=== PATIENT | female | born 1990 | race Caucasian/White ===

== ENCOUNTER 2018-02-23 23:27 | Emergency (ER) | payer OTHER ==
--- NOTE | 2018-02-23 23:31 | PDOC ---
History of Present Illness <Galen Leija - Last Filed: 02/23/18 23:48> - History of Present Illness Initial Comments: 02/24/18 00:03 This 27 year old woman with a history of hypertension and DM (diet-controlled) presents with a few day history of left flank pain. Pain radiates to the left lower quadrant and is associated with urinary urgency. No history of dysuria; patient noted blood on tissue after urination earlier today. She has just stopped menstruating however. No leg pain/paresthesias/numbness or weakness. 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 No history of renal colic in the patient but her mother has kidney stones. One previous history of bladder infection; no history of pyelonephritis. No fever/chills. Patient has been nauseous for the last few hours. No vomiting. <Quin Kramer - Last Filed: 02/24/18 05:46> - General Chief Complaint: Pain Stated Complaint: LT FLANK PAIN Past History <Galen Leija - Last Filed: 02/23/18 23:48> - Past Medical History Asthma: No Cancer: No Cardiac Disorders: No Diabetes: Yes (NO MEDS, DIET CONTROLLED) HTN: Yes Seizures: No Thyroid Disease: No - Surgical History Cardiac Surgery: Yes (MAY) Cholecystectomy: Yes - Family Disease History Family Disease History: Diabetes: Mother - Reproductive History (#): 0 Para: 1 Cervical CA: No Dysfunctional Uterine Bleeding: No Ectopic : No Endometrial CA: No Polycystic Ovaries: No Therapeutic (s) & number: No Tubal Ligation: No Spontaneous : 0 - Suicide/Smoking/Psychosocial Hx Smoking History: Never smoked Have you smoked in the past 12 months: No Hx Alcohol Use: No Drug/Substance Use Hx: No Substance Use Type: None Hx Substance Use Treatment: No <Quin Kramer - Last Filed: 02/24/18 05:46> - Past Medical History Allergies/Adverse Reactions: Allergies Allergy/AdvReac Type Severity Reaction Status Date / Time No Known Drug Allergies Allergy Verified 04/23/15 14:40 seafood Allergy Intermediate Hives Uncoded 04/23/15 14:40 Home Medications: Ambulatory Orders Ciprofloxacin [Cipro (Restricted To Id)] 500 mg PO Q12H #10 tablet 02/24/18 Review of Systems - Review of Systems Able to Perform ROS?: Yes Comments:: 12 point review of systems is negative except for what is noted in the history of present illness <Quin Kramer - Last Filed: 02/24/18 05:46> *Physical Exam - Vital Signs Last Vital Signs Temp Pulse Resp BP Pulse Ox 98.4 F 88 16 144/100 100 02/23/18 23:28 02/23/18 23:28 02/23/18 23:28 02/23/18 23:28 02/23/18 23:28 <Galen Leija - Last Filed: 02/23/18 23:48> - Physical Exam Comments: GENERAL: Adult female, in mild distress secondary to left flank pain HEAD: Normal with no signs of trauma. EYES: PERRLA, EOMI, sclera anicteric, conjunctiva clear. ENT: Ears normal, nares patent, oropharynx clear without exudates. Dry mucous membranes. NECK: Normal range of motion, supple without lymphadenopathy, JVD, or masses. LUNGS: Breath sounds equal, clear to auscultation bilaterally. No wheezes, and no crackles. HEART:Regular rate and rhythm, normal S1 and S2 without murmur, rub or gallop. ABDOMEN:.normal bowel sounds No guarding,tenderness or rebound.No masses No distention. EXTREMITIES: Normal range of motion, no edema. No clubbing or cyanosis. No erythema, or tenderness. NEUROLOGICAL: Cranial nerves II through XII grossly intact. Normal speech. No focal neurological deficits. MUSCULOSKELETAL: Back non-tender to palpation, mild left CVA tenderness SKIN: Warm, Dry, normal turgor, no rashes or lesions noted. <Quin Kramer - Last Filed: 02/24/18 05:46> ED Treatment Course - LABORATORY CBC & Chemistry Diagram: 02/24/18 00:18 02/24/18 00:18 <Quin Kramer - Last Filed: 02/24/18 05:46> Medical Decision Making - Medical Decision Making 02/24/18 00:07 Urinalysis positive for 10-20 RBCs/2-5 WBCs/2+ bacteria/few epi PGU is negative Urine C&S sent. Because of the patient's pattern of pain, microscopic hematuria and family history of kidney stones, renal stone protocol CT ordered.. Renal stone protocol CT preliminary interpretation by Imaging communications department head: No evidence of ureteral stone or hydronephrosis on left side. Possible right distal ureter calcification versus phlebolith noted with possible mild hydronephrosis. No other abnormality seen. Fatty liver is noted. Results discussed with the patient: She is now comfortable after 1 L normal saline IV and 30 mg Toradol IV. Although there is no clear indication that ureteral stone is present on the left side or that there is hydro nephrosis/ ureter, patient will be treated with Cipro 500 mg now and course of Cipro 500 milligrams twice a day for 5 days will be prescribed. Left flank pain and urinary urgency in the be early signs of upper tract UTI. Meanwhile, patient should drink plenty of water use [id number] nonsteroidal anti-inflammatory/acetaminophen as needed for pain. She should return to the emergency room if she has persistent, severe pain or experiences fever/vomiting. 02/24/18 02:56 After the patient was discharged, results for random glucose of 457 received. Patient was contacted and results of the blood glucose test reviewed with her. Patient states that she had gestational DM requiring insulin; after delivery, metformin was prescribed but she had severe gastrointestinal side effects and this was stopped. According to the patient, she has not been on any oral hypoglycemic agents. She does not routinely test blood or urine for sugar. She states that her general medical doctor is [facility] based, in the [place] ( Dr. Lino). Patient has been advised again to drink plenty of water, maintain diabetic diet and call her doctor tomorrow for urgent follow-up. She understands that she may need treatment of her diabetes now and that continuing blood glucose levels at this high value would be dangerous She should return to the ER if she experiences weakness/extreme fatigue, nausea , extreme thirst/urination. <Quin Kramer - Last Filed: 02/24/18 05:46> *DC/Admit/Observation/Transfer <Galen Leija - Last Filed: 02/23/18 23:48> <Quin Kramer - Last Filed: 02/24/18 05:46> Diagnosis at time of Disposition: Flank pain UTI (urinary tract infection) Qualifiers: Urinary tract infection type: site unspecified Hematuria presence: without hematuria Qualified Code(s): N39.0 - Urinary tract infection, site not specified - Discharge Dispostion Disposition: HOME Condition at time of disposition: Stable - Prescriptions Prescriptions: Ciprofloxacin [Cipro (Restricted To Id)] 500 mg PO Q12H #10 tablet - Referrals Referrals: Jayant Daniel MD., MD [Staff Physician] - - Patient Instructions Printed Discharge Instructions: DI for Flank Pain Additional Instructions: Drink plenty of water Ibuprofen/naproxen/acetaminophen as needed for pain Ciprofloxacin 500 mg twice a day for 5 days Return to ER if you have severe pain/vomiting/fever Follow-up with (urology group) within the next 10 days
[2018-02-23 23:33] VITALS: BP 144/100; PULSE 88; TEMP 98.4; BMI 33.4
[2018-02-23 23:52] LABS: HCG,QUALITATIVE URINE Negative
[2018-02-23 23:53] LABS: EPI CELLS FEW /HPF; PH,URINE 6.5 (4.5-8); URINE APPEARANCE Clear; URINE BACTERIA 2+ /hpf (NEGATIVE); URINE BILIRUBIN Negative (NEGATIVE); URINE COLOR Yellow; URINE GLUCOSE (UA) 2+ (NEGATIVE); URINE KETONE Trace (NEGATIVE); URINE LEUK ESTERASE Negative (NEGATIVE); URINE NITRITE Negative (NEGATIVE); URINE PROTEIN Trace (NEGATIVE); URINE UROBILINOGEN 0.2 (0.2-1.0)
[2018-02-24] MEDS ORDERED: SODIUM CHLORIDE 1,000 ML IV STA (00:12)
[2018-02-24] MEDS ORDERED: KETOROLAC TROMETHAMINE 30 MG/1 ML VIAL IVPUSH ONE (00:13)
[2018-02-24] MEDS ORDERED: KETOROLAC TROMETHAMINE 30 MG/1 ML VIAL ONE (00:24)
[2018-02-24 00:51] LABS: BASO % 0.6 % (0-2.0); EOS % 4.2 % (0-4.5); HEMATOCRIT 42.7 % (32.4-45.2); HEMOGLOBIN 14.2 GM/dL (10.7-15.3); LYMPH % 29.5 % (8-40); MCH 28.4 pg (25.7-33.7); MCHC 33.3 g/dl (32.0-36.0); MEAN CELL VOLUME 85.4 fl (80-96); MEAN PLT VOLUME 9.7 fl (7.5-11.1); MONO % 5.6 % (3.8-10.2); NEUT % 60.1 % (42.8-82.8); PLATELET COUNT 278 K/MM3 (134-434); RDW 13.2 % (11.6-15.6)
[2018-02-24] MEDS ORDERED: CIPROFLOXACIN 500 MG TABLET (RESTRICTED TO ID) PO ONE (01:52)
[2018-02-24] MEDS ORDERED: CIPROFLOXACIN 250 MG TABLET (RESTRICTED TO ID) PO ONE (02:00)
[2018-02-24 02:07] LABS: ALBUMIN 3.6 g/dl (3.4-5.0); ALK PHOS 127 U/L (45-117); ANION GAP 9 MMOL/L (8-16); BILIRUBIN,TOTAL 0.6 mg/dL (0.2-1); BLOOD UREA NITROGEN 7 mg/dL (7-18); CALCIUM 9.2 mg/dL (8.5-10.1); CHLORIDE 96 mmol/L (98-107); CO2 27 mmol/L (21-32); CREATININE 0.7 mg/dL (0.55-1.3); SGOT/AST 24 U/L (15-37); SGPT/ALT 62 U/L (13-61); SODIUM 132 mmol/L (136-145); TOT PROT 7.6 g/dl (6.4-8.2)
[2018-02-24 02:14] LABS: GLUCOSE,RANDOM 457 mg/dL (74-106)
== END 2018-02-24 02:09 | disposition home or self-care (01) ==
LOC: FER 23:27
PROC: 3E0333Z Introduction of Anti-inflammatory into Peripheral Vein, Percutaneous Approach (ICD-10-PCS; principal; 2018-02-23)
PROC: 3E0337Z Introduction of Electrolytic and Water Balance Substance into Peripheral Vein, Percutaneous Approach (ICD-10-PCS; 2018-02-23)
DX: N39.0 Urinary tract infection, site not specified (principal); I10 Essential (primary) hypertension; E11.9 Type 2 diabetes mellitus without complications
CPT/HCPCS: 36415; 74176; 80053; 81003; 81015; 84703; 85025; 87086; 87186; 99282-25; J7030

== ENCOUNTER 2018-03-25 04:24 | Emergency (ER) | payer OTHER ==
--- NOTE | 2018-03-25 04:49 | PDOC ---
History of Present Illness - General Chief Complaint: Chest Pain Stated Complaint: CHEST PAIN Time Seen by Provider: 03/25/18 04:47 - History of Present Illness Initial Comments: 03/25/18 04:51 This 27-year-old woman with a history of DM(diet-controlled) and gestational hypertension presents with several hour history of left arm tingling/lower lip numbness and 2 hour history of intermittent right-sided burning chest pain. Patient states that approximately 10 PM last night, as patient was at rest she felt her left arm tingling, followed by lower lip numbness. Of note, patient states that she had been lying on the left arm prior to the numbness beginning. Numbness was felt mainly in the forearm, dorsal aspect. This lasted for several hours but has now resolved. At approximately 2 AM, brief episodes of right anterior burning type chest pain began. These episodes last approximately 1-2 minutes and resolve spontaneously; unclear if there are any triggers to the onset of pain. She denies shortness of breath/diaphoresis/ nausea/vomiting. The patient has not had any difficulty with speech and weakness, facial droop, difficulties with vision or balance. Of note, patient has not been sleeping for the last 2 days since she received news of her older brother having cancer. She states she has been feeling stressed and very anxious about this. Also, both of her parents are ill. Patient was seen here approximately one month ago with urinary tract infection ( Klebsiella) treated with Cipro. Random glucose(value received after patient was discharged) was 457. Patient was contacted and urged to follow-up with her primary care physician urgently. Patient still has not seen her doctor, with follow-up appointment with her reportedly in 2 weeks. She states that she has been drinking a lot of "lemon water" and attempting to eat a diabetic diet Cardiac risk factors: Positive for DM/HTN/obesity; no smoking/hyperlipidemia/ family history Past History - Past Medical History Allergies/Adverse Reactions: Allergies Allergy/AdvReac Type Severity Reaction Status Date / Time No Known Drug Allergies Allergy Verified 04/23/15 14:40 seafood Allergy Intermediate Hives Uncoded 04/23/15 14:40 Home Medications: Ambulatory Orders Alprazolam [Xanax] 0.25 mg PO Q12H PRN #4 tablet MDD 2 tabs 03/25/18 Asthma: No Cancer: No Cardiac Disorders: No COPD: No Diabetes: Yes (NO MEDS, DIET CONTROLLED) HTN: Yes Seizures: No Thyroid Disease: No - Surgical History Cardiac Surgery: Yes (MAY) Cholecystectomy: Yes - Family Disease History Family Disease History: Diabetes: Mother - Reproductive History (#): 0 Para: 1 Cervical CA: No Dysfunctional Uterine Bleeding: No Ectopic : No Endometrial CA: No Polycystic Ovaries: No Therapeutic (s) & number: No Tubal Ligation: No Spontaneous : 0 - Suicide/Smoking/Psychosocial Hx Smoking History: Never smoked Have you smoked in the past 12 months: No Hx Alcohol Use: No Drug/Substance Use Hx: No Substance Use Type: None Hx Substance Use Treatment: No Review of Systems - Review of Systems Able to Perform ROS?: Yes Comments:: 12 point review of systems is negative except for what is noted in the history of present illness *Physical Exam - Vital Signs Last Vital Signs Temp Pulse Resp BP Pulse Ox 97.8 F 80 18 148/96 97 03/25/18 04:25 03/25/18 04:25 03/25/18 04:25 03/25/18 04:25 03/25/18 04:25 - Physical Exam Comments: GENERAL: Adult obese female, alert and oriented 3, appearing mildly anxious but in no acute distress HEAD: Normal with no signs of trauma. EYES: PERRLA, EOMI, sclera anicteric, conjunctiva clear. ENT: Ears normal, nares patent, oropharynx clear without exudates. Moist mucous membranes. NECK: Normal range of motion, supple without lymphadenopathy, JVD, or masses. LUNGS: Breath sounds equal, clear to auscultation bilaterally. No wheezes, and no crackles. HEART:Regular rate and rhythm, normal S1 and S2 without murmur, rub or gallop. ABDOMEN:.normal bowel sounds No guarding,tenderness or rebound.No masses No distention. EXTREMITIES: Normal range of motion, no edema. No clubbing or cyanosis. No erythema, or tenderness. NEUROLOGICAL: Cranial nerves II through XII grossly intact. Normal speech. No focal neurological deficits. MUSCULOSKELETAL: Back non-tender to palpation, no CVA tenderness SKIN: Warm, Dry, normal turgor, no rashes or lesions noted. 12-lead electrocardiogram performed and interpreted by me: Normal sinus rhythm at 73 bpm. [place] and intervals are normal. There is poor R-wave progression and T waves are nearly flat in leads V5 and V6 ED Treatment Course - LABORATORY CBC & Chemistry Diagram: 03/25/18 05:05 03/25/18 05:00 - ADDITIONAL ORDERS Additional order review: Laboratory Results 03/25/18 03/25/18 03/25/18 05:05 05:00 04:55 PT with INR 11.70 INR 0.99 Sodium 135 L Potassium 3.7 Chloride 98 Carbon Dioxide 26 Anion Gap 11 BUN 10 Creatinine 0.5 L Creat Clearance w eGFR > 60 Random Glucose 329 H* Calcium 8.8 Total Bilirubin 1.0 AST 23 ALT 68 H Alkaline Phosphatase 97 Creatine Kinase 80 Troponin I < 0.02 Total Protein 7.4 Albumin 3.8 Urine Color Straw Urine Appearance Clear Urine pH 6.0 Ur Specific [place] 1.036 H Urine Protein Negative Urine Glucose (UA) 3+ H Urine Ketones Trace H Urine Blood Negative Urine Nitrite Negative Urine Bilirubin Negative Urine Urobilinogen Negative Ur Leukocyte Esterase Negative Urine HCG, Qual 03/25/18 04:55 PT with INR INR Sodium Potassium Chloride Carbon Dioxide Anion Gap BUN Creatinine Creat Clearance w eGFR Random Glucose Calcium Total Bilirubin AST ALT Alkaline Phosphatase Creatine Kinase Troponin I Total Protein Albumin Urine Color Urine Appearance Urine pH Ur Specific [place] Urine Protein Urine Glucose (UA) Urine Ketones Urine Blood Urine Nitrite Urine Bilirubin Urine Urobilinogen Ur Leukocyte Esterase Urine HCG, Qual Negative 03/25/18 05:05 RBC 5.07 MCV 84.6 MCHC 33.2 RDW 13.0 MPV 9.1 Neutrophils % 51.1 Lymphocytes % 36.3 D Monocytes % 6.9 Eosinophils % 4.6 H Basophils % 1.1 Medical Decision Making - Medical Decision Making 03/25/18 05:09 This 27-year-old woman with a history of diabetes/gestational HTN/obesity presents with a few hour history intermittent right-sided anterior chest pain, lasting a few minutes at a time and not related to any particular triggering event. She is also had some left arm numbness and perioral tingling, both of which have resolved. The patient is currently extremely anxious and sleep deprived secondary to family members being ill. Although history is atypical for myocardial ischemia, because of her multiple risk factors, lab evaluation including troponin levels will be sent. *DC/Admit/Observation/Transfer Diagnosis at time of Disposition: Atypical chest pain, Anxiety - Discharge Dispostion Disposition: HOME Condition at time of disposition: Stable - Prescriptions Prescriptions: Alprazolam [Xanax] 0.25 mg PO Q12H PRN #4 tablet MDD 2 tabs PRN Reason: Anxiety - Referrals - Patient Instructions Printed Discharge Instructions: DI for Atypical Chest Pain Additional Instructions: Drink plenty of water; maintain diabetic diet Return to ER if you have chest pain, shortness of breath, palpitations Follow-up with your general medical doctor as scheduled Restart metformin in previous dosage as discussed Xanax 0.25 mg up to twice a day as needed for anxiety and insomnia - Post Discharge Activity
[2018-03-25 04:56] VITALS: BP 148/96; PULSE 80; TEMP 97.8; BMI 33.5
[2018-03-25 05:37] LABS: BASO % 1.1 % (0-2.0); EOS % 4.6 % (0-4.5); HEMATOCRIT 42.9 % (32.4-45.2); HEMOGLOBIN 14.2 GM/dL (10.7-15.3); LYMPH % 36.3 % (8-40); MCH 28.1 pg (25.7-33.7); MCHC 33.2 g/dl (32.0-36.0); MEAN CELL VOLUME 84.6 fl (80-96); MEAN PLT VOLUME 9.1 fl (7.5-11.1); MONO % 6.9 % (3.8-10.2); NEUT % 51.1 % (42.8-82.8); PLATELET COUNT 246 K/MM3 (134-434); RBC 5.07 M/mm3 (3.60-5.2); WHITE BLOOD COUNT 7.1 K/mm3 (4.0-10.0)
[2018-03-25 05:41] LABS: URINE APPEARANCE CLEAR; URINE BILIRUBIN NEGATIVE (<2.0 mg/dL); URINE COLOR STRAW; URINE GLUCOSE (UA) 3+ (NEGATIVE); URINE KETONE TRACE (NEGATIVE); URINE LEUK ESTERASE NEGATIVE (NEGATIVE); URINE NITRITE NEGATIVE (NEGATIVE); URINE PROTEIN NEGATIVE (NEGATIVE); URINE UROBILINOGEN NEGATIVE mg/dL (0.2-1.0)
[2018-03-25 05:50] LABS: INR 0.99 (0.83-1.09); PROTHROMBIN TIME (PATIENT) 11.7 SEC (9.7-13.0)
[2018-03-25 06:48] LABS: ALBUMIN 3.8 g/dl (3.4-5.0); ALK PHOS 97 U/L (45-117); ANION GAP 11 MMOL/L (8-16); BLOOD UREA NITROGEN 10 mg/dL (7-18); CALCIUM 8.8 mg/dL (8.5-10.1); CHLORIDE 98 mmol/L (98-107); CO2 26 mmol/L (21-32); CREATININE 0.5 mg/dL (0.55-1.3); POTASSIUM 3.7 mmol/L (3.5-5.1); SGOT/AST 23 U/L (15-37); SGPT/ALT 68 U/L (13-61); SODIUM 135 mmol/L (136-145); TOT PROT 7.4 g/dl (6.4-8.2)
[2018-03-25 06:53] LABS: GLUCOSE,RANDOM 329 mg/dL (74-106)
--- NOTE | 2018-03-26 19:22 | EKG ---
Test Reason : Blood Pressure : / mmHG Vent. Rate : 073 BPM Atrial Rate : 073 BPM P-R Int : 140 ms QRS Dur : 090 ms QT Int : 410 ms P-R-T Axes : 022 015 000 degrees QTc Int : 451 ms NORMAL SINUS RHYTHM NONSPECIFIC ST AND T WAVE ABNORMALITY ABNORMAL ECG NO PREVIOUS ECGS AVAILABLE Confirmed by DOUGLAS MARTÍNEZ MD ([id number]) on 03/26/2018 7:21:50 PM Referred By: MD CARRINGTON Confirmed By:DOUGLAS MARTÍNEZ MD
== END 2018-03-25 07:11 | disposition home or self-care (01) ==
LOC: FER 04:24
DX: R07.89 Other chest pain (principal); F41.9 Anxiety disorder, unspecified; E11.9 Type 2 diabetes mellitus without complications; I10 Essential (primary) hypertension; E66.9 Obesity, unspecified
CPT/HCPCS: 36415; 80053; 81003; 82550; 84484; 84703; 85025; 85610; 93005; 99282-25

== ENCOUNTER 2019-05-20 17:33 | Emergency (ER) | payer OTHER ==
--- NOTE | 2019-05-20 17:39 | PDOC ---
History of Present Illness - General Chief Complaint: Ear Problem Stated Complaint: LEFT EAR PAIN Time Seen by Provider: 05/20/19 17:37 History Source: Patient Exam Limitations: No Limitations - History of Present Illness Initial Comments: 05/20/19 17:38 HPI: 29yo F PMH hypertension and DM (diet-controlled) presenting with left ear pain for 1 week. Patient had a cold starting 2 weeks ago. 1 week ago developed "excruciating" headache and then left ear pain. Pain has spontaneously resolved 2-3 days ago however she now feels that her hearing is muffled and reports some tenderness anterior to her ear. Endorses intermittent blood with nasal mucus over this same time period. Denies fevers, chill, nausea, vomiting, headache, changes in vision, chest pain , SOB, cough (resolving), urinary symptoms. All: NKDA Meds: Xanax PMH: as above PSH: Patricia, 2x Past History - Travel Traveled outside of the country in the last 30 days: No Close contact w/someone who was outside of country & ill: No - Past Medical History Allergies/Adverse Reactions: Allergies Allergy/AdvReac Type Severity Reaction Status Date / Time No Known Drug Allergies Allergy Verified 05/20/19 17:36 seafood Allergy Intermediate Hives Uncoded 05/20/19 17:36 Home Medications: Ambulatory Orders Alprazolam [Xanax] 0.25 mg PO Q12H PRN #4 tablet MDD 2 tabs 03/25/18 Asthma: No Cancer: No Cardiac Disorders: No COPD: No Diabetes: Yes (NO MEDS, DIET CONTROLLED) HTN: Yes Seizures: No Thyroid Disease: No - Surgical History Cardiac Surgery: Yes (MAY) Cholecystectomy: Yes - Reproductive History (#): 0 Para: 1 Cervical CA: No Dysfunctional Uterine Bleeding: No Ectopic : No Endometrial CA: No Polycystic Ovaries: No Therapeutic (s) & number: No Tubal Ligation: No Spontaneous : 0 - Psycho Social/Smoking Cessation Hx Smoking History: Never smoked Have you smoked in the past 12 months: No Hx Alcohol Use: No Drug/Substance Use Hx: No Substance Use Type: None Hx Substance Use Treatment: No Review of Systems - Review of Systems Able to Perform ROS?: Yes Is the patient limited Maori proficient: Yes Constitutional: No: Chills, Fever, Weakness HEENTM: Yes: Hearing Loss (muffled hearing ). No: Recent change in vision, Ear Discharge, Nose Congestion, Tinnitus, Throat Pain, Mouth Pain, Dental Problems Respiratory: Yes: Cough (with cold, resolving). No: Shortness of Breath, Wheezing Cardiac (ROS): No: Chest Pain, Irregular Heart Rate, Chest Tightness ABD/GI: No: Blood Streaked Bowels, Constipated, Diarrhea, Nausea, Rectal Bleeding, Vomiting, Tarry Stools : No: Burning, Dysuria, Discharge, Flank Pain, Hematuria Musculoskeletal: No: Muscle Pain, Muscle Weakness, Neck Pain Integumentary: No: Bruising, Erythema, Pruritus, Rash Neurological: No: Headache, Numbness, Tingling, Weakness Psychiatric: No: Stressors, Change in Appetite Hematologic/Lymphatic: No: Anemia, Blood Clots, Easy Bleeding All Other Systems: Reviewed and Negative *Physical Exam - Physical Exam 05/20/19 17:43 Vitals reviewed, AFVSS WDWN woman, appears stated age, no acute distress MMM, NCAT, left TM with erythema - non-bulging / non-ruptured / translucent, EOMI, no palpable lymph nodes, nose with small open wound bilaterally no rhinorrhea RRR, nl s1s2, no murmurs appreciated CTABL, normal WOB, full sentences, no wheezes Soft, non-tender, non-distended WWP, no clubbing / cyanosis / edema 2+ distal pulses CN 2-12 intact, normal gait, MAEE Normal mood and affect Medical Decision Making - Medical Decision Making 05/20/19 17:43 29yo F PMH hypertension and DM (diet-controlled) presenting with left ear pain. History notable for onset of pain during a cold, resolution, and current muffled hearing. Physical notable for stable vitals, afebrile, mildly erythematous TM on the left, non-tender sinuses, no LAD in head / neck. - Tylenol for pain - Sudafed for congestion - Hot steamy showers for congestion and dry nares - Time for resolution - F/u with PMD 05/20/19 18:30 Dispo: Home Discharge - Discharge Information Problems reviewed: Yes Clinical Impression/Diagnosis: Ear pain Qualifiers: Laterality: left Qualified Code(s): H92.02 - Otalgia, left ear Acute otitis media Qualifiers: Otitis media type: unspecified Qualified Code(s): H66.90 - Otitis media, unspecified, unspecified ear Condition: Improved Disposition: HOME - Admission No - Follow up/Referral Referrals: Edin Amaya MD [Staff Physician] - - Patient Discharge Instructions Patient Printed Discharge Instructions: DI for Ear Pain-Adult Additional Instructions: You were seen and evaluated in the [facility] Emergency Department for Ear Pain. You can continue to take over the counter medication such as Tylenol or Motrin for pain, or decongestants like Sudafed. Always take these medications according to the package instructions. Please follow up with your primary care doctor in the next 2-3 days if symptoms do not resolve. If your symptoms don't resolve in the next week you can call the provided ENT doctor to schedule an evaluation. Return to the ED for any new or concerning symptoms including but not limited to : loss of hearing, blood / fluid drainage from the affected ear, worsening pain on your skull behind the ear, development of fevers / chills / headache that doesn't resolve with over the counter medication. - Post Discharge Activity
[2019-05-20 18:04] VITALS: BP 137/61; PULSE 82; TEMP 98.2; BMI 29.9
--- NOTE | 2019-05-20 18:20 | PDOC ---
Attending Attestation - Resident Resident Name: Sivler Medina - ED Attending Attestation I have performed the following: I have examined & evaluated the patient, The case was reviewed & discussed with the resident, I agree w/resident's findings & plan, Exceptions are as noted - HPI HPI: 05/20/19 18:14 29y F hx of DM (controleld w/ diet), presents with L ear muffling. Pt had URI about 2 week ago, then developed L ear pain approx 1 week ago. pt denies any discahrge, notse that she had some ear pain but that has resolved a few days ago and now it feels more 'muffled'. Patient denies any recent fevers. She states her URI symptoms have significantly improved although she is still has a very mild cough. Patient notes that her family was also sick with similar symptoms. GENERAL: The patient is awake, alert, and fully oriented, Nontoxic - in no acute distress. HEAD: Normocephalic, atraumatic. EYES: extraocular movements intact, sclera anicteric, conjunctiva clear. ENT: Normal voice, Moist mucous membranes. mildly erythemaouds L tm without bulging, loss of light reflexx, n mastoid tenderness NECK: Normal range of motion, supple Suspect serous effusion Without fevers or discomfort doubt his otitis media. Supportive care at home with Sudafed. Return precautions discussed if patient has persistent is recommended ENT follow-up - Physicial Exam PE: 05/21/19 19:35 see above - Medical Decision Making 05/21/19 19:35 see above
== END 2019-05-20 18:57 | disposition home or self-care (01) ==
LOC: FER 17:33
DX: H92.02 Otalgia, left ear (principal); H66.90 Otitis media, unspecified, unspecified ear; Z91.013 Allergy to seafood; E11.9 Type 2 diabetes mellitus without complications; I10 Essential (primary) hypertension
CPT/HCPCS: 99281-25

== ENCOUNTER 2020-11-25 21:36 | Emergency (ER) | payer OTHER ==
[2020-11-25 21:49] VITALS: PULSE 100; TEMP 98.3; BMI 34.0
[2020-11-25] MEDS ORDERED: DALBAVANCIN HCL 500 MG VIAL (RESTRICTED TO ID ONLY) IVPB ONE (21:51)
[2020-11-25 22:20] LABS: BASO % 0.5 % (0-2.0); EOS % 2.2 % (0-4.5); HEMATOCRIT 45.3 % (32.4-45.2); HEMOGLOBIN 15.9 GM/dl (10.7-15.3); LYMPH % 22.7 % (8-40); MCH 30.2 pg (25.7-33.7); MCHC 35.1 g/dl (32.0-36.0); MEAN CELL VOLUME 86.1 fl (80-96); MEAN PLT VOLUME 8.8 fl (7.5-11.1); MONO % 7.8 % (3.8-10.2); NEUT % 66.8 % (42.8-82.8); PLATELET COUNT 265 10^3/uL (134-434); RBC 5.27 M/mm3 (3.60-5.2); RDW 12.1 % (11.6-15.6); WHITE BLOOD COUNT 9.3 K/mm3 (4.0-10.8)
[2020-11-25 23:55] VITALS: BP 190/102
== END 2020-11-25 23:56 | disposition home or self-care (01) ==
LOC: FER 21:36
DX: L03.211 Cellulitis of face (principal)
CPT/HCPCS: 36415; 85025; 87040; 99284-25

== ENCOUNTER 2021-08-14 08:44 | Day surgery (SDC) | payer OTHER ==
[2021-08-14 08:57] VITALS: BMI 32.6
[2021-08-14] MEDS ORDERED: ACETAMINOPHEN 1000 MG/100 ML BAG IVPB ONE (09:04)
[2021-08-14] MEDS ORDERED: SODIUM CHLORIDE 0.9% 1000 ML INFUS.BAG IV ONE (09:04)
[2021-08-14] MEDS ORDERED: ONDANSETRON 4 MG/2 ML VIAL IVPUSH ONE (09:04)
[2021-08-14] MEDS ORDERED: FAMOTIDINE 20 MG/50 ML IVPB 20 MG/50 ML MG IVPB ONE ×2 (09:07→09:22)
[2021-08-14] MEDS ORDERED: ONDANSETRON 4 MG/2 ML VIAL ONE ×3 (09:21→17:18)
[2021-08-14] MEDS ORDERED: ACETAMINOPHEN INJECTION 100 ML IVPB ONE ×3 (09:22→17:31)
[2021-08-14 09:53] LABS: ALBUMIN 4.3 g/dl (3.4-5.0); BILIRUBIN,TOTAL 0.9 mg/dl (0.2-1); CALCIUM 9.5 mg/dl (8.5-10); CREATININE 0.5 mg/dl (0.55-1.3); TOT PROT 8.1 g/dl (6.4-8.2)
[2021-08-14 10:49] LABS: BASO % 0.6 % (0-2.0); EOS % 2.7 % (0-4.5); HEMATOCRIT 46.9 % (32.4-45.2); HEMOGLOBIN 15.7 GM/dL (10.7-15.3); LYMPH % 25.3 % (8-40); MCH 28.9 pg (25.7-33.7); MCHC 33.5 g/dl (32.0-36.0); MEAN CELL VOLUME 86.5 fl (80-96); MEAN PLT VOLUME 9.7 fl (7.5-11.1); MONO % 8.4 % (3.8-10.2); PLATELET COUNT 233 10^3/uL (134-434); RBC 5.43 M/mm3 (3.60-5.2); RDW 13.1 % (11.6-15.6); WHITE BLOOD COUNT 6.6 K/mm3 (4.0-10.0)
[2021-08-14] MEDS ORDERED: CEFTRIAXONE 1 GM in DEXTROSE 5%-WATER - 100 ML IVPB ONE (13:47)
[2021-08-14] MEDS ORDERED: cefTRIAXone SODIUM 1 GM VIAL ONE (13:50)
[2021-08-14] MEDS ORDERED: DEXAMETHASONE SOD PHOSPHATE 4 MG/1 ML VIAL ONE (14:13)
[2021-08-14] MEDS ORDERED: SUCCINYLCHOLINE CHLORIDE 200 MG/10 ML SYRINGE ONE ×2 (14:14→14:45)
[2021-08-14] MEDS ORDERED: PROPOFOL 20 ML ONE (14:14)
[2021-08-14] MEDS ORDERED: ROCURONIUM BROMIDE 50 MG/5 ML SYRINGE ONE (14:14)
[2021-08-14] MEDS ORDERED: MIDAZOLAM HCL 2 MG/2 ML SINGLE DOSE VIAL ONE (14:14)
[2021-08-14] MEDS ORDERED: GLYCERIN 1 RECTAL SUPPOSITORY, PEDIATRIC PR ONE (14:26)
[2021-08-14] MEDS ORDERED: KETAMINE HCL 200 MG/20 ML VIAL ONE (14:48)
[2021-08-14] MEDS ORDERED: NEOSTIGMINE METHYLSULFATE 0.5 MG/1 ML - 10 ML MDV ONE (14:51)
[2021-08-14] MEDS ORDERED: BUPIVACAINE HCL 50 ML ONE (15:13)
[2021-08-14] MEDS ORDERED: SODIUM CHLORIDE 1,000 ML IV SCH ×2 (15:45→16:56)
[2021-08-14] MEDS ORDERED: BUPIVACAINE HCL/PF 0.5% (5 MG/ML) 30 ML VIAL IJ ONE (16:25)
[2021-08-14] MEDS ORDERED: IBUPROFEN 600 MG TABLET (FP) PO PRN (16:54)
[2021-08-14] MEDS ORDERED: ONDANSETRON 4 MG/2 ML VIAL IVPUSH PRN (16:55)
[2021-08-14] MEDS ORDERED: oxyCODONE HCL 5 MG TABLET PO PRN ×2 (16:55)
[2021-08-14] MEDS: ACETAMINOPHEN 1000 MG/100 ML BAG IVPB PRN ×2 (17:30→23:46)
[2021-08-14] MEDS ORDERED: PROMETHAZINE HCL 25 MG/1 ML VIAL ONE (17:50)
[2021-08-14] MEDS ORDERED: PROMETHAZINE HCL 25 MG/1 ML VIAL IVPUSH ONE (17:52)
[2021-08-14] MEDS: PROMETHAZINE HCL 25 MG/1 ML VIAL IVPUSH ONE ×2 (17:55→18:30)
[2021-08-14] MEDS: INSULIN SLIDING SCALE (NOVOLOG) 1 VIAL SQ SCH (21:32)
[2021-08-15] MEDS: INSULIN SLIDING SCALE (NOVOLOG) 1 VIAL SQ SCH ×2 (06:47→10:44)
[2021-08-15] MEDS ORDERED: LISINOPRIL 10 MG TABLET PO SCH (10:00)
[2021-08-15 10:06] VITALS: BP 133/77; PULSE 67; TEMP 98
[2021-08-15] MEDS: ACETAMINOPHEN 1000 MG/100 ML BAG IVPB PRN (10:36)
[2021-08-15 10:49] LABS: BASO % 0.5 % (0-2.0); EOS % 3.3 % (0-4.5); HEMATOCRIT 38.2 % (32.4-45.2); HEMOGLOBIN 12.8 GM/dL (10.7-15.3); LYMPH % 30.4 % (8-40); MCH 28.9 pg (25.7-33.7); MCHC 33.4 g/dl (32.0-36.0); MEAN CELL VOLUME 86.6 fl (80-96); NEUT % 56.8 % (42.8-82.8); PLATELET COUNT 190 10^3/uL (134-434); RBC 4.41 M/mm3 (3.60-5.2); RDW 13.4 % (11.6-15.6); WHITE BLOOD COUNT 5.6 K/mm3 (4.0-10.0)
[2021-08-15 12:01] LABS: ALBUMIN 3.2 g/dl (3.4-5.0); BILIRUBIN,TOTAL 0.9 mg/dl (0.2-1); CALCIUM 7.9 mg/dl (8.5-10); CREATININE 0.4 mg/dl (0.55-1.3); MAGNESIUM 1.5 mg/dL (1.8-2.4); TOT PROT 5.9 g/dl (6.4-8.2)
== END 2021-08-15 13:27 | disposition home or self-care (01) ==
LOC: SUATTDRO 08:44 → FER 08:44 → FASUSAT 08:44 → FM/S 14:56 → EDSTATUS 15:09 → FASUSAT 08-15 13:27
PROVIDERS: ATTEND Nurse Practitioner Family
PROC: 0DTJ4ZZ Resection of Appendix, Percutaneous Endoscopic Approach (ICD-10-PCS; principal; 2021-08-14 15:41)
DX: K35.890 Other acute appendicitis without perforation or gangrene (principal)
CPT/HCPCS: 36415; 72131-TC; 74177-TC; 80053; 81003; 82010; 82962; 83735; 84703; 85025; 87086; 88304-TC; 94760; C9803-CS; U0003; U0005

== ENCOUNTER 2021-10-19 08:45 | Emergency (ER) | payer OTHER ==
[2021-10-19 08:59] VITALS: TEMP 98.8; BMI 30.4
[2021-10-19] MEDS ORDERED: SODIUM CHLORIDE 0.9% 1000 ML INFUS.BAG IV ONE (09:00)
[2021-10-19] MEDS ORDERED: ACETAMINOPHEN 1000 MG/100 ML BAG IVPB ONE (09:00)
[2021-10-19] MEDS ORDERED: ONDANSETRON 4 MG/2 ML VIAL IVPUSH ONE (09:00)
[2021-10-19] MEDS ORDERED: INSULIN REGULAR HUMAN 100 UNITS/ML *VIAL* (FOR IVP) IVPUSH ONE (09:01)
[2021-10-19] MEDS ORDERED: ACETAMINOPHEN INJECTION 100 ML IVPB ONE (09:29)
[2021-10-19] MEDS ORDERED: ONDANSETRON 4 MG/2 ML VIAL ONE (09:29)
[2021-10-19 09:36] LABS: HCG,QUALITATIVE URINE Negative
[2021-10-19 09:38] LABS: HEMATOCRIT 42.5 % (32.4-45.2); HEMOGLOBIN 14.8 G/dL (10.7-15.3); MCH 30.1 pg (25.7-33.7); MCHC 34.8 g/dl (32.0-36.0); MEAN CELL VOLUME 86.5 fl (80-96); MEAN PLT VOLUME 8.5 fl (7.5-11.1); PLATELET COUNT 298.6 10^3/uL (134-434); RBC 4.91 10^6/uL (3.60-5.2); WHITE BLOOD COUNT 12.5 10^3/uL (4.0-10.8)
[2021-10-19 09:45] LABS: CALCIUM 9.5 mg/dl (8.5-10)
[2021-10-19 09:49] LABS: ALBUMIN 3.9 g/dl (3.4-5.0); BILIRUBIN,TOTAL 1.2 mg/dl (0.2-1); CREATININE 0.5 mg/dl (0.55-1.3); TOT PROT 7.1 g/dl (6.4-8.2)
[2021-10-19 10:55] LABS: VENOUS BASE EXCESS 2.1 mmol/L (-2-2); VENOUS O2 SATURATION 73.6 % (70-80); VENOUS PH 7.389 (7.310-7.410)
[2021-10-19] MEDS ORDERED: METOCLOPRAMIDE HCL INJECTION 10 MG/2 ML VIAL IVPB ONE (11:05)
[2021-10-19] MEDS ORDERED: METOCLOPRAMIDE HCL INJECTION 10 MG/2 ML VIAL ONE (11:17)
[2021-10-19 13:32] VITALS: BP 143/103; PULSE 71
== END 2021-10-19 13:31 | disposition home or self-care (01) ==
LOC: FER 08:45
PROC: 3E0333Z Introduction of Anti-inflammatory into Peripheral Vein, Percutaneous Approach (ICD-10-PCS; principal; 2021-10-19)
PROC: 3E033GC Introduction of Other Therapeutic Substance into Peripheral Vein, Percutaneous Approach (ICD-10-PCS; 2021-10-19)
PROC: 3E033GC Introduction of Other Therapeutic Substance into Peripheral Vein, Percutaneous Approach (ICD-10-PCS; 2021-10-19)
DX: K31.84 Gastroparesis (principal)
CPT/HCPCS: 0241U-QW; 36415; 70450-TC; 80053; 81003; 82010; 82803; 83690; 84703; 85027; 87086; 99284-25

== ENCOUNTER 2023-12-26 14:21 | Emergency (ER) | payer OTHER ==
[2023-12-26 15:18] VITALS: TEMP 98.2; BMI 29.2
[2023-12-26] MEDS: SODIUM CHLORIDE 0.9% 500 ML INFUS.BAG IV ONE ×2 (15:38→18:23)
[2023-12-26] MEDS ORDERED: ACETAMINOPHEN INJECTION 100 ML IVPB ONE (15:39)
[2023-12-26] MEDS ORDERED: ONDANSETRON 4 MG/2 ML VIAL ONE (15:39)
[2023-12-26] MEDS: ONDANSETRON 4 MG/2 ML VIAL IVPUSH ONE (15:45)
[2023-12-26 15:51] LABS: HEMATOCRIT 45.3 % (32.4-45.2); HEMOGLOBIN 14.9 G/dL (10.7-15.3); MCH 29.3 pg (25.7-33.7); MCHC 32.9 g/dl (32.0-36.0); MEAN CELL VOLUME 89.1 fl (80-96); MEAN PLT VOLUME 8.9 fl (7.5-11.1); RBC 5.08 10^6/uL (3.60-5.2); RDW 13.9 % (11.6-15.6); WHITE BLOOD COUNT 9.2 10^3/uL (4.0-10.8)
[2023-12-26] MEDS: ACETAMINOPHEN 1000 MG/100 ML BAG IVPB ONE (16:00)
[2023-12-26 16:06] LABS: VENOUS BASE EXCESS 0.6 mmol/L (-2-2); VENOUS O2 SATURATION 85.6 % (70-80); VENOUS PCO2 40.4 mmHg (38-52); VENOUS PH 7.412 (7.310-7.410)
[2023-12-26 16:07] LABS: ALBUMIN 4.4 g/dl (3.4-5.0); BILIRUBIN,TOTAL 1.1 mg/dl (0.2-1); CREATININE 0.6 mg/dl (0.6-1.3); POTASSIUM 3.9 mmol/L (3.5-5.1)
[2023-12-26] MEDS ORDERED: KETOROLAC TROMETHAMINE 15 MG/ML VIAL ONE (16:24)
[2023-12-26] MEDS: KETOROLAC TROMETHAMINE 15 MG/ML VIAL IVPUSH ONE (16:25)
[2023-12-26 16:58] VITALS: BP 159/98; PULSE 79; RESP 18
[2023-12-26 17:39] LABS: PLATELET ESTIMATE ADEQUATE
== END 2023-12-26 20:05 | disposition home or self-care (01) ==
LOC: FER 14:21
PROC: 3E033GC Introduction of Other Therapeutic Substance into Peripheral Vein, Percutaneous Approach (ICD-10-PCS; principal; 2023-12-26)
PROC: 3E033NZ Introduction of Analgesics, Hypnotics, Sedatives into Peripheral Vein, Percutaneous Approach (ICD-10-PCS; 2023-12-26)
PROC: 3E0333Z Introduction of Anti-inflammatory into Peripheral Vein, Percutaneous Approach (ICD-10-PCS; 2023-12-26)
DX: R10.31 Right lower quadrant pain (principal); R30.0 Dysuria; R11.0 Nausea; N39.0 Urinary tract infection, site not specified; Z20.822 Contact with and (suspected) exposure to COVID-19
CPT/HCPCS: 0241U-QW; 36415; 74178-TC; 76830-TC; 80053; 81003; 81015; 82803; 83690; 84703; 85027; 87077; 87086; 87186; 99285-25; J0131; Q9967